=== PATIENT | female | born 1985 | race Caucasian/White ===

== ENCOUNTER 2016-10-20 06:07 | Emergency (ER) | payer OTHER ==
[~2016-10-20] VITALS: Ht 167.6 cm; Wt 71.2 kg
[2016-10-20 06:25] VITALS: BP 114/60; PULSE 67; RESP 16; TEMP 96.7; O2SAT 100
--- NOTE | 2016-10-20 06:25 | NUR ---
Pt placed in bed 4 and gowned up for evaluation
--- NOTE | 2016-10-20 06:30 | NUR ---
Pt presents to ED with c/o LLQ abdominal pain 04/16, with N/V/D and chills. Abdomen soft, nontender, painful upon palpation, bowel sound presents. A&Ox4, denies SOB or chestpain. Ambulatory, gait stable. Will continue to monitor
[2016-10-20 06:40] LABS: BILIRUBIN,URINE 1+ (NEGATIVE); BLOOD, URINE TRACE (NEGATIVE); CLARITY/URINE CLEAR (CLEAR); COLOR,URINE YELLOW (YELLOW); GLUCOSE,URINE NEGATIVE (NEGATIVE); KETONES,URINE NEGATIVE (NEGATIVE); LEUKOCYTE ESTERASE ,URINE NEGATIVE (NEGATIVE); NITRITE, URINE NEGATIVE (NEGATIVE); PROTEIN URINE NEGATIVE (NEGATIVE); UROBILINOGEN,URINE 0.2 (0.2-1.0)
--- NOTE | 2016-10-20 06:48 | NUR ---
MD Hurd at bedside examining pt
--- NOTE | 2016-10-20 06:50 | NUR ---
Brittani corona in [facility] - 10/20/16 at 0653 by [email or web address] MD hernandez at bedside examining pt
[2016-10-20 06:52] LABS: BACTERIA,URINE FEW /HPF (None Seen); MUCUS,URINE 1+ /LPF (None Seen); RBC,URINE 0-3 /HPF (0-3); WBC,URINE 0-3 /HPF (0-3)
--- NOTE | 2016-10-20 06:53 | NUR ---
Report given to Israel MERCADO, Care endorsed
[2016-10-20] MEDS ORDERED: ONDANSETRON 4 MG ODT TAB PO ONE (07:00)
[2016-10-20] MEDS ORDERED: KETOROLAC TROMETHAMINE 60 MG/2 ML VIAL IM ONE (07:00)
--- NOTE | 2016-10-20 07:10 | NUR ---
Assumed sherly, pt c/o LLQ abd pain. Pt medicated tolerated well.
--- NOTE | 2016-10-20 07:35 | NUR ---
Patient given written and verbal discharge instructions and verbalizes understanding. ER MD discussed with patient the results and treatment provided. Given copies of tests performed in ER. Patient in stable condition. ID arm band removed. Rx of Motrin,Zofran,Clarks and Imodium given. Patient educated on pain management and to follow up with PMD. Pain Scale 2. Opportunity for questions provided and answered.
--- NOTE | 2016-10-20 07:36 | NUR ---
pt reports pain resolving.
[2016-10-20 07:40] VITALS: BP 112/62; PULSE 66; RESP 16; TEMP 97.2; O2SAT 100
== END 2016-10-20 07:40 | disposition home or self-care (01) ==
LOC: SED 06:07
DX: R10.32 Left lower quadrant pain (principal); R11.2 Nausea with vomiting, unspecified; R19.7 Diarrhea, unspecified
CPT/HCPCS: 81000; 81025; 96372; 99283; J1885; Q0162

== ENCOUNTER 2019-05-29 22:44 | Emergency (ER) | payer OTHER ==
[~2019-05-29] VITALS: Ht 167.6 cm; Wt 72.6 kg
[2019-05-29 22:50] VITALS: BP_SYST 119
[2019-05-29] MEDS ORDERED: KETOROLAC TROMETHAMINE 60 MG/2 ML VIAL IM ONE (23:15)
[2019-05-29] MEDS ORDERED: ONDANSETRON 4 MG ODT TAB PO ONE (23:15)
[2019-05-29 23:33] LABS: BILIRUBIN,URINE NEGATIVE (NEGATIVE); BLOOD, URINE NEGATIVE (NEGATIVE); CLARITY/URINE CLEAR (CLEAR); COLOR,URINE YELLOW (YELLOW); GLUCOSE,URINE NEGATIVE (NEGATIVE); KETONES,URINE NEGATIVE (NEGATIVE); LEUKOCYTE ESTERASE ,URINE NEGATIVE (NEGATIVE); NITRITE, URINE NEGATIVE (NEGATIVE); PH,URINE 6.5 (5.0-8.0); PROTEIN URINE NEGATIVE (NEGATIVE); UROBILINOGEN,URINE 0.2 (0.2-1.0)
[2019-05-29 23:57] VITALS: BP_SYST 119
== END 2019-05-29 23:57 | disposition home or self-care (01) ==
LOC: SED 22:44
DX: G44.209 Tension-type headache, unspecified, not intractable (principal)
CPT/HCPCS: 81003; 96372; 99283; J1885; Q0162

== ENCOUNTER 2019-07-18 06:10 | Emergency (ER) | payer OTHER ==
[~2019-07-18] VITALS: Ht 167.6 cm; Wt 70.3 kg
[2019-07-18 06:35] VITALS: BP_SYST 118
[2019-07-18] MEDS ORDERED: KETOROLAC TROMETHAMINE 60 MG/2 ML VIAL IM ONE (08:00)
[2019-07-18] MEDS ORDERED: ONDANSETRON 4 MG ODT TAB PO ONE (08:00)
[2019-07-18 08:35] VITALS: BP_SYST 122
== END 2019-07-18 08:35 | disposition home or self-care (01) ==
LOC: SED 06:10
DX: J11.1 Influenza due to unidentified influenza virus with other respiratory manifestations (principal); R11.0 Nausea
CPT/HCPCS: 81002; 96372; 99283; J1885; Q0162